=== PATIENT | male | born 1960 | race Two or more races ===

== ENCOUNTER 2022-04-29 01:53 | Emergency (ER) | payer MEDICAID, OTHER ==
[~2022-04-29] VITALS: Ht 175.3 cm; Wt 63.5 kg
[2022-04-29 02:00] VITALS: BP 93/43
[2022-04-29] MEDS ORDERED: CLIN300C12 PO (03:47)
[2022-04-29] MEDS ORDERED: IBUP-1957 PO (03:47)
--- NOTE | 2022-04-29 03:58 | NUR ---
Patient discharged to home in stable condition. Written and verbal after care instructions given. Patient verbalizes understanding of instruction.
== END 2022-04-29 03:59 | disposition home or self-care (01) ==
LOC: ER 01:55
DX: L03.116 Cellulitis of left lower limb (principal); L03.115 Cellulitis of right lower limb; Z76.5 Malingerer [conscious simulation]; Z88.8 Allergy status to other drugs, medicaments and biological substances; Z59.00 Homelessness unspecified; Z79.899 Other long term (current) drug therapy